=== PATIENT | female | born 1960 | race Two or more races ===

== ENCOUNTER 2024-06-27 12:48 | Emergency (ER) | payer OTHER ==
[~2024-06-27] VITALS: Ht 154.9 cm; Wt 62.1 kg
[2024-06-27 13:01] VITALS: BP 120/84
[2024-06-27] MEDS ORDERED: RAYOS5 MG (13:04)
[2024-06-27] MEDS ORDERED: [UNRECOGNIZED DRUG - OTHER] (13:06)
[2024-06-27 16:26] LABS: HEMATOCRIT 37.2 % (36.0-45.00); HEMOGLOBIN 12.2 g/dL (12.0-15.00); MEAN CELL VOLUME 89.8 fL (80.00-100.00); MEAN CORPUSCULAR HEMOGLOBIN 29.5 pg (27.00-32.0); MEAN CORPUSCULAR HGB CONC 32.9 g/dl (32.0-36.0); PLATELET COUNT 181 K/uL (150-450); RED BLOOD COUNT 4.14 M/uL (4.00-6.00); RED CELL DISTRIBUTION WIDTH 15.1 % (11.5-14.5)
[2024-06-27 16:50] LABS: ALBUMIN 3.3 gm/dL (3.4-5.0); BILIRUBIN TOTAL 0.34 mg/dL (0.3-1.2); CALCIUM 8.6 mg/dL (8.5-10.1); CREATININE SERUM 1.03 mg/dL (0.55-1.02); GFR 54.47; GLOBULINA 5.1 G/DL (2.4-3.5); POTASSIUM 3.51 mEq/L (3.5-5.1); TOTAL PROTEIN 8.4 gm/dL (6.4-8.2)
[2024-06-27 17:08] LABS: COVID-19 AG NEGATIVE (NEGATIVE)
[2024-06-27 17:14] LABS: INFLUENZA A AG NEGATIVE (NEGATIVE)
[2024-06-27] MEDS ORDERED: ACETAMINOPHEN500 M1 PO (18:41)
[2024-06-27] MEDS ORDERED: BENZONATATE100 MG PO (18:41)
== END 2024-06-27 19:30 | disposition home or self-care (01) ==
LOC: ER 12:48
PROVIDERS: General Practice
DX: B34.9 Viral infection, unspecified (principal); R53.81 Other malaise; Z20.822 Contact with and (suspected) exposure to COVID-19; Z88.1 Allergy status to other antibiotic agents; Z88.9 Allergy status to unspecified drugs, medicaments and biological substances